=== PATIENT | female | born 1990 | race Caucasian/White ===

== ENCOUNTER 2017-01-22 02:10 | Emergency (ER) | payer OTHER ==
[~2017-01-22] VITALS: Ht 162.6 cm; Wt 52.0 kg
[2017-01-22 02:13] VITALS: BP 159/63; PULSE 96; RESP 16; TEMP 97.7; O2SAT 99
--- NOTE | 2017-01-22 02:43 | PD ---
HPI Chief Complaint: Foreign Body Time Seen by Provider: 02:39 Travel History International Travel<30 days: No Contact w/Intl Traveler<30days: No Traveled to known affect area: No History of Present Illness HPI 26-year-old [place] female presents to emergency Department with complaints of foreign body sensation/bug in her right ear canal. She states that this occurred approximately 2-3 hours ago. She has a sensation of buzzing in her ear. She denies any significant pain. No drainage. No recent illness. [facility] Past Medical History Medical History: Denies Significant Hx Tetanus Vaccination: < 5 Years ?: Not LMP: 12/25/16 Past Surgical History Surgical History: No Previous Surgery Social History Alcohol Use: Yes Tobacco Use: No Substance Use: No Allergies-Medications (Allergen,Severity, Reaction): Coded Allergies: No Known Allergies (Unverified , 01/22/17) Review of Systems Except as stated in HPI: all other systems reviewed are Neg General / Constitutional: No: Fever, Chills Eyes: No: Blurred Vision, Photophobia HENT: Positive: Earache, No: Sore Throat, Rhinitis, Neck Pain, Dental Difficulties, Ear Discharge Cardiovascular: No: Chest Pain or Discomfort, Palpitations Respiratory: No: Cough, Shortness of Breath Gastrointestinal: No: Nausea, Vomiting Physical Exam Narrative GENERAL: Well-developed, well-nourished in no acute distress. Nontoxic appearing. HEAD: Normocephalic, atraumatic. EYES: Pupils equal round and reactive. Extraocular motions intact. No scleral icterus. No injection or drainage. ENT: TMs clear without erythema. The external auditory canals clear. There is a small piece of hair deep in the right ear canal. I see no bugs. Nose: clear . Posterior pharynx is pink and moist. No tonsillar edema or exudate. Uvula midline. Airway patent. NECK: Trachea midline.Supple, nontender, moves head freely. No central bony tenderness or spasm. CARDIOVASCULAR: Regular rate and rhythm without murmurs, gallops, or rubs. RESPIRATORY: Clear to auscultation. Breath sounds equal bilaterally. No wheezes , rales, or rhonchi. GASTROINTESTINAL: Abdomen soft, non-tender, nondistended. No hepato-splenomegaly , or palpable masses. No guarding. EXTREMITIES: No clubbing, cyanosis, or edema. No joint tenderness, effusion, or edema noted. BACK: Nontender without deformity or crepitance. No flank tenderness. Data Data Last Documented VS Vital Signs Date Time Temp Pulse Resp B/P Pulse Ox O2 Delivery O2 Flow Rate FiO2 01/22/17 02:13 97.7 96 16 159/63 99 Room Air MDM Medical Decision Making Medical Screen Exam Complete: Yes Emergency Medical Condition: Yes Medical Record Reviewed: Yes Differential Diagnosis Differential diagnoses: Foreign body, otitis media, otitis externa Narrative Course Patient's ear canals shows no obvious bug foreign body. There is a small piece of hair down near the TM. The patient may have had something in her ear but now is gone. This also may be irritation from the piece of hair in her ear canal. We will irrigate her ear after putting Alcaine drops in the canal. This is right ear foreign body-resolved Diagnosis Primary Impression: rIGHT EAR CANAL FOREIGN BODY-RESOLVED Patient Instructions: General Instructions Additional Instructions: Rest. Tylenol or Advil for pain. Follow-up with a medical doctor in 2-3 days for recheck. Return to the ER if any problems. Disposition: 01 DISCHARGE HOME Condition: Stable Brennon Duvall Jan 22, 2017 02:42
== END 2017-01-22 03:33 | disposition home or self-care (01) ==
LOC: NEPK 02:10
DX: T16.1XXA Foreign body in right ear, initial encounter (principal)
CPT/HCPCS: 99282